=== PATIENT | female | born 1975 ===

== ENCOUNTER → 2021-05-14 | Outpatient (CLI) | payer BC ==
--- NOTE | 2021-05-14 11:26 | RAD ---
EXAMINATION: US BREAST LT, MG DIGITAL BILAT DIAGNOSTIC MAMMO WITH CATE CLINICAL HISTORY: Left axillary palpable lump TECHNIQUE: Digital craniocaudal and mediolateral oblique views of the bilateral breasts obtained with 3-D tomosynthesis. Targeted left axillary ultrasound also performed. COMPARISON: Mammogram 11/01/2018 BREAST COMPOSITION: The breasts are heterogeneously dense, which may obscure small masses. FINDINGS: BILATERAL DIAGNOSTIC MAMMOGRAM: No evidence of suspicious mass, calcifications, or areas of architectural distortion. Asymmetrically prominent left axillary lymph nodes. No the axillary lymph nodes appeared more symmetric on the prior exam, the lymph nodes on the left appear similar on today's exam and the prior exam. TARGETED LEFT AXILLARY ULTRASOUND: Several benign-appearing axillary lymph nodes with preserved reniform shape and fatty jane. IMPRESSION: No evidence of malignancy. Palpable abnormality likely corresponding to benign-appearing left axillary lymph nodes. BI-RADS ASSESSMENT: Category 2: Benign RECOMMENDATION: Recommend clinical management of palpable finding and return for routine bilateral screening mammogra m in one year. PQRS compliance statement - Patient information was entered into a reminder system with a target due date for the next mammogram. "Our facility is accredited by the [employer] Mammography Program." Electronically signed by: Tigre Felix DO (05/14/2021 11:23 AM) [email or web address]
== END ==
LOC: MAMMO 08:57
PROVIDERS: ATTEND Family Medicine
DX: R92.8 Other abnormal and inconclusive findings on diagnostic imaging of breast (principal); N63.20 Unspecified lump in the left breast, unspecified quadrant
CPT/HCPCS: 76641; 77066; G0279; 77062